=== PATIENT | female | born 1985 | race Two or more races ===

== ENCOUNTER 2020-08-24 14:20 | Emergency (ER) | payer OTHER ==
--- NOTE | 2020-08-24 14:31 | ER Document Report ---
ED Medical Screen (RME) - General Stated Complaint: TROUBLE BREATHING./FEELS SOMETHING IN THROAT Time Seen by Provider: 08/24/20 14:29 Notes: HPI: 35-year-old female with history of lap band surgery 5 years ago presenting with difficulty swallowing feeling like there is an obstruction when she tries to swallow over the last 2 days. States she cannot swallow liquids except very small amounts because she feels like something is blocking her ability to swallow in the upper chest region. No history of reflux. Patient states she was sick 2 to 3 days ago with fevers and states she had a Covid test and a flu test that were both negative on Monday PHYSICAL EXAMINATION: Patient phonation is completely normal. No pharyngeal erythema. Lung sounds are clear to auscultation. I have greeted and performed a rapid initial assessment of this patient. A comprehensive ED assessment and evaluation of the patient, analysis of test results and completion of medical decision making process will be conducted by an additional ED providers. - Related Data Allergies/Adverse Reactions: No Known Allergies Allergy (Verified 09/22/13 11:48) Past Medical History Past Surgical History: Reports: Hx Abdominal Surgery - lap band - Immunizations Immunizations up to date: Yes Hx Diphtheria, Pertussis, Tetanus Vaccination: No Physical Exam - Vital signs Vitals: Temp Pulse Resp BP Pulse Ox 99.6 F 93 18 144/89 H 100 08/24/20 14:28 08/24/20 14:28 08/24/20 14:28 08/24/20 14:28 08/24/20 14:28 Course - Vital Signs Vital signs: Temp Pulse Resp BP Pulse Ox 99.6 F 93 18 144/89 H 100 08/24/20 14:28 08/24/20 14:28 08/24/20 14:28 08/24/20 14:28 08/24/20 14:28
--- NOTE | 2020-08-24 15:11 | RADIOLOGY REPORT (SQ) ---
EXAM DESCRIPTION: CHEST 2 VIEWS IMAGES COMPLETED DATE/TIME: 08/24/2020 2:59 pm REASON FOR STUDY: ? obstruction trouble swallowing COMPARISON: None. EXAM PARAMETERS: NUMBER OF VIEWS: Two views. TECHNIQUE: PA and lateral views of the chest were obtained. RADIATION DOSE: NA LIMITATIONS: None. FINDINGS: LUNGS AND PLEURA: No consolidation, pleural effusion or pneumothorax. MEDIASTINUM AND HILAR STRUCTURES: No mediastinal or hilar contour abnormality. HEART AND VASCULAR STRUCTURES: The cardiac silhouette and pulmonary vasculature are within normal cotter its. BONES: No acute findings. HARDWARE: None in the chest. OTHER: Gastric band with of phi angle of approximately 72%. IMPRESSION: 1. No acute cardiopulmonary process. 2. Gastric band with an abnormal phi angle of approximately 72% concerning for a slipped gastric band . TECHNICAL DOCUMENTATION: JOB ID: [id number] 2010 [employer]- All Rights Reserved Reading location - IP/workstation name: [email or web address]
--- NOTE | 2020-08-24 15:12 | RADIOLOGY REPORT (SQ) ---
EXAM DESCRIPTION: SOFT TISSUE NECK IMAGES COMPLETED DATE/TIME: 08/24/2020 2:59 pm REASON FOR STUDY: obstruction COMPARISON: None. NUMBER OF VIEWS: Two views. TECHNIQUE: AP and lateral radiographic image of the soft tissues of the neck. LIMITATIONS: None. FINDINGS: EPIGLOTTIS: Normal. PREVERTEBRAL SOFT TISSUES: Normal. No soft tissue swelling. SUBGLOTTIC AREA: Normal. No narrowing. RETROPHARYNGEAL SPACE: Normal. BONES: No other findings.. LUNG APICES: Normal. OTHER: No radiopaque foreign body. IMPRESSION: No abnormality of the soft tissues of the neck. TECHNICAL DOCUMENTATION: JOB ID: [id number] 2010 [employer]- All Rights Reserved Reading location - IP/workstation name: [email or web address]
[2020-08-24 15:26] LABS: ABSOLUTE LYMPHOCYTES (AUTO) 0.8 10^3/uL (0.5-4.7); ABSOLUTE MONOCYTES (AUTO) 0.4 10^3/uL (0.1-1.4); ABSOLUTE NEUT (AUTO) 4.4 10^3/uL (1.7-8.2); BASOPHILS % (AUTO) 0.3 % (0-2); HEMATOCRIT 37.5 % (36.0-47.0); HEMOGLOBIN 12.8 g/dL (12.0-15.5); LYMPHOCYTES % (AUTO) 13.4 % (13-45); MEAN CORPUSCULAR HGB CONC 34.2 g/dL (32.0-36.0); MEAN CORPUSCULAR VOLUME 85 fl (80-97); MONOCYTES % (AUTO) 7.6 % (3-13); PLATELET COUNT 196 10^3/uL (150-450); RED BLOOD COUNT 4.42 10^6/uL (3.72-5.28); RED CELL DISTRIBUTION WIDTH 13.7 % (11.5-14.0); SEGMENTED NEUTROPHILS % (AUTO) 78.7 % (42-78); TOTAL CELLS COUNTED % (AUTO) 100 %; WHITE BLOOD COUNT 5.6 10^3/uL (4.0-10.5)
[2020-08-24 15:43] LABS: ALBUMIN 4.3 g/dL (3.5-5.0); ALKALINE PHOSPHATASE 48 U/L (38-126); ANION GAP 8 (5-19); ASPARTATE AMINO TRANSFERASE 22 U/L (14-36); BILIRUBIN,DIRECT 0.1 mg/dL (0.0-0.4); BILIRUBIN,TOTAL 0.4 mg/dL (0.2-1.3); BLOOD UREA NITROGEN 14 mg/dL (7-20); CALCIUM 9.3 mg/dL (8.4-10.2); CARBON DIOXIDE 25 mmol/L (22-30); CHLORIDE 101 mmol/L (98-107); GLUCOSE 98 mg/dL (75-110); POTASSIUM 4.3 mmol/L (3.6-5.0); TOTAL PROTEIN 7.2 g/dL (6.3-8.2)
[2020-08-24 22:09] VITALS: BP 139/88
[2020-08-24] MEDS ORDERED: DEXAMETHASONE SOD PHOS INJ 10 MG/1 ML VIAL IV ONE (22:42)
[2020-08-24] MEDS ORDERED: NORMAL SALINE 1000 ML 1,000 ML IV ONE (22:42)
[2020-08-24] MEDS ORDERED: LIDOCAINE 2% VISCOUS SOLN 15 ML UDCUP PO ONE (22:43)
[2020-08-24] MEDS ORDERED: METOCLOPRAMIDE HCL ORAL SOLN 10 MG/10 ML UDCUP PO ONE (22:43)
[2020-08-24] MEDS ORDERED: MAG HYDROX/AL HYDROX/SIMETH SUSP 30 ML UDCUP PO ONE (22:43)
--- NOTE | 2020-08-24 22:59 | ER Document Report ---
ED General - General Chief Complaint: Difficulty Swallowing Stated Complaint: TROUBLE BREATHING./FEELS SOMETHING IN THROAT Time Seen by Provider: 08/24/20 14:29 - HPI Notes: Chief Complaint: Painful swallowing Historian: History obtained from patient HPI: This is a 35-year-old female presents to the ER complaining of painful/ difficulty swallowing for the past few days. She says symptoms started this past Monday when she developed fevers, body aches. To her PCP who did a Covid test which was negative and started her on a Z-Ignacio and steroid Dosepak. Patient says she then developed ulcers in her mouth which are very painful and then developed painful swallowing and also feels difficult to swallow like she has to force it down. She is able to swallow liquids and solids. She also has a LAP- BAND which she is concerned that maybe that is associated with this. Denies fevers the past couple days. She appears alert and oriented no acute distress in the ED she is speaking in full sentences and controlling oral secretions well. ROS: Constitutional: no fevers. HEENT: Mouth ulcers, throat pain CV: no chest pain or palpitations. Resp: no cough or SOB. GI: no abdominal pain, or n/v/d. : no dysuria, hematuria, or incont. MSK: no back pain, no joint swelling/redness. Skin: no rashes or itching. Neuro: no seizures, weakness, numbness, or confusion. Hematological: no ecchymosis or easy bleeding. Endocrine: no polyuria/polydipsia, no heat/cold intolerance. Psych: no SI/HI, AH/VH or memory loss. PMHx: Reviewed and agree as charted by RN. PSHx: Reviewed and agree as charted by RN. SOCHx: Reviewed and agree as charted by RN. FHX: No significant familial comorbid conditions directly related to patient co mplaint Current Medications: Reviewed and agree with the patient medications as charted by the RN. Allergies: Reviewed and agree with the listed allergies as charted by the RN Physical Exam: Vitals: Reviewed in chart as documented by RN. General: Alert and in NAD. Head: Normocephalic; atraumatic Eyes: PERRLA, Conjunctivae clear sclerae non-icteric bilat ENT: no soft palate swelling or uvular deviation. Tonsils 2+. Small scattered ulcerations noted. Mouthsmall shallow ulcerations with a saunders base noted to interior cheeks and roof of mouth. Neck: trachea midline, no unilateral swelling/tenderness/lymphadenopathy CV: RRR, no M/R/G; symmetric distal pulses Resp: respirations even and unlabored, CTA bilat. GI: abd soft and nondistended. NTTP. normal BS. no masses/HSM. no CVAT bilat MSK: FROM of all extremities. No midline CTL spine tenderness/deformity Skin: warm, moist, good turgor. no rash/lesions Neuro: Alert and oriented X 4. following CN 2-12 intact. no unilateral weakness/numbness Psych: No SI/HI or AH/VH. ED Results: Medical Decision-Making: Differential includes food bolus, retropharyngeal abscess, peritonsillar abscess, pharyngitis, viral syndrome, hiatal hernia, achalasia, esophageal strictures, reflux, esophageal perforation, URI, etc. [facility], chest x-ray, CT soft tissue neck with IV contrast was ordered in triage. Imaging was reviewed which was negative for any acute process. Labs also reassuring. Chest x-ray was negative. I suspect patient just has a viral syndrome causing aphthous ulcers which are causing his her swallowing discomfort. She is able to tolerate p.o. liquids in the ED and is also tolerating her oral secretions. I will give her IV Decadron, GI cocktail, IV fluids. She has not been able tolerate p.o. meds due to this discomfort. I will have her follow-up with her GI doctor for endoscope if her symptoms are not resolved or improving in the next week. Diagnosis: Condition: Disposition: - Related Data Allergies/Adverse Reactions: No Known Allergies Allergy (Verified 09/22/13 11:48) Past Medical History - Social History Smoking Status: Unknown if Ever Smoked Family History: Reviewed & Not Pertinent Patient has homicidal ideation: No Past Surgical History: Reports: Hx Abdominal Surgery - lap band - Immunizations Immunizations up to date: Yes Hx Diphtheria, Pertussis, Tetanus Vaccination: No Physical Exam - Vital signs Vitals: Temp Pulse Resp BP Pulse Ox 99.6 F 93 18 144/89 H 100 08/24/20 14:28 08/24/20 14:28 08/24/20 14:28 08/24/20 14:28 08/24/20 14:28 Course - Re-evaluation Re-evalutation: 08/25/20 00:59 Patient is feeling much better after GI cocktail and IV Decadron and IV fluids. She is ready to discharge home. He is tolerating p.o. intake in the ED. Will DC with viscous lidocaine. And supportive care at home. Encourage p.o. fluids to stay hydrated. Return factors were discussed. - Vital Signs Vital signs: Temp Pulse Resp BP Pulse Ox 98.1 F 88 18 139/88 H 98 08/24/20 22:03 08/24/20 22:03 08/24/20 22:03 08/24/20 22:03 08/24/20 22:03 - Laboratory Result Diagrams: 08/24/20 15:10 08/24/20 15:10 Laboratory results interpreted by me: 08/24/20 08/24/20 15:10 15:10 Seg Neutrophils % 78.7 H Sodium 134.3 L Lipase 378.8 H Discharge - Discharge Clinical Impression: Aphthous ulcer Condition: Stable Disposition: HOME, SELF-CARE Additional Instructions: Use prescription do not share drinks, towels, food, toothbrush, etc. Follow-up with your doctor in the next few days for recheck. Return to the ER if your condition worsens. Prescriptions: Lidocaine HCl [Xylocaine 2% Viscous Soln 15 ml Udcup] 15 ml PO Q4HP PRN #150 ml PRN Reason:
== END 2020-08-25 01:34 | disposition home or self-care (01) ==
LOC: ER 14:20
DX: K12.0 Recurrent oral aphthae (principal); R13.10 Dysphagia, unspecified; R50.9 Fever, unspecified; M79.10 Myalgia, unspecified site; Z98.84 Bariatric surgery status
CPT/HCPCS: 99284; 96361; 96374; 36415; 83690; 85025; 80053; 71046; 70360; J3490; J7030; J1100